=== PATIENT | female | born 1935 | race Caucasian/White ===

== ENCOUNTER 2021-11-05 23:33 | Inpatient (IN) | payer OTHER ==
[~2021-11-05] VITALS: Ht 162.6 cm; Wt 68.0 kg
[2021-11-06] MEDS ORDERED: SODIUM CHLORIDE 0.9% 1,000 ML IV ONE
[2021-11-06 07:47] LABS: HEMATOCRIT. 37.6 % (36.0-48.0); HEMOGLOBIN. 12.9 g/dL (12.0-16.0); MEAN CORPUSCULAR HEMOGLOBIN 31.9 pg (28.0-32.0); MEAN CORPUSCULAR VOLUME 93.3 fL (81.0-99.0); MEAN PLATELET VOLUME 8.7 fl (7.4-10.4); PLATELET 187 x1000/uL (130-400); RED BLOOD CELL COUNT 4.02 mill/uL (4.2-5.4); RED CELL DISTRIBUTION WIDTH 14.7 % (11.6-14.6)
[2021-11-06 07:56] LABS: CHLORIDE 106 mEq/L (98-107)
[2021-11-06 08:04] LABS: ETHANOL BLOOD < 10 mg/dL
[2021-11-06] MEDS ORDERED: ONDANSETRON HCL 4MG/2ML INJ IV PRN (08:30)
[2021-11-06] MEDS ORDERED: MAGNESIUM/ALUMINUM HYDROXIDE/SIMETHICONE 30ML UDC PO PRN (08:30)
[2021-11-06] MEDS ORDERED: ZOLPIDEM TARTRATE 5MG TABLET PO PRN (08:30)
[2021-11-06] MEDS ORDERED: NITROGLYCERIN 0.4MG TABLET SL SL PRN (08:30)
[2021-11-06] MEDS ORDERED: IPRATROPIUM/ALBUTEROL 0.5-3(2.5)MG/3ML NEB NEB PRN (08:30)
[2021-11-06] MEDS ORDERED: ACETAMINOPHEN 325MG TABLET PO PRN ×2 (08:30)
[2021-11-06] MEDS ORDERED: GUAIFENESIN 200MG/10ML SUGAR FREE UDC PO PRN (08:30)
[2021-11-06] MEDS ORDERED: DOCUSATE SODIUM 100MG CAPSULE PO PRN (08:30)
[2021-11-06] MEDS ORDERED: CLONIDINE 0.1MG TABLET PO PRN (08:30)
[2021-11-06] MEDS ORDERED: KETOROLAC 15MG/ML VIAL IV PRN (08:30)
[2021-11-06 08:52] LABS: PLATELET ESTIMATE NORMAL
[2021-11-06] MEDS ORDERED: FAMOTIDINE 20MG TABLET PO SCH (09:00)
[2021-11-06 09:13] LABS: TOTAL IRON BINDING CAPACITY 284 ug/dL (250-450)
[2021-11-06] MEDS: FAMOTIDINE 20MG TABLET PO SCH (11:47)
[2021-11-06] MEDS: ASCORBIC ACID 500 MG TABLET PO SCH ×2 (11:47→22:37)
[2021-11-06] MEDS: ENOXAPARIN 40MG/0.4ML SYR SUBCUT SCH (11:47)
[2021-11-06] MEDS: CHOLECALCIFEROL (D3) 1000 UNIT TABLET PO SCH (11:47)
[2021-11-06] MEDS: ASPIRIN 325MG EC TABLET PO SCH (11:48)
[2021-11-06] MEDS: ZINC SULFATE 220 MG ( 50 ) CAPSULE PO SCH (12:19)
[2021-11-06] MEDS ORDERED: CEFTRIAXONE 1 G PREMIX 50 ML IV SCH (17:30)
[2021-11-06] MEDS ORDERED: ALBUTEROL 6.7GM HFA INHALER ORI PRN (17:30)
[2021-11-06] MEDS ORDERED: AZITHROMYCIN 500MG/250ML 250 ML IV NR (17:41)
[2021-11-06 18:05] LABS: CREATINE KINASE 164 IU/L (26-192)
[2021-11-06 18:07] LABS: CREATINE KINASE MB FRACTION < 1.0 ng/mL (0.5-3.6)
[2021-11-07] VITALS (7 sets, daily range): BP systolic 102–140; BP diastolic 49–88
[2021-11-07] MEDS: ALBUTEROL 6.7GM HFA INHALER ORI SCH (03:00)
[2021-11-07] MEDS: CHOLECALCIFEROL (D3) 1000 UNIT TABLET PO SCH (08:15)
[2021-11-07] MEDS: ENOXAPARIN 40MG/0.4ML SYR SUBCUT SCH (08:15)
[2021-11-07] MEDS: ASPIRIN 325MG EC TABLET PO SCH (08:16)
[2021-11-07] MEDS: FAMOTIDINE 20MG TABLET PO SCH (08:16)
[2021-11-07] MEDS: ZINC SULFATE 220 MG ( 50 ) CAPSULE PO SCH (08:16)
[2021-11-07] MEDS: ASCORBIC ACID 500 MG TABLET PO SCH ×2 (08:16→20:01)
[2021-11-07 13:25] LABS: BASOPHILS % 0.7 % (0.0-2.0); EOSINOPHILS % 0.2 % (0.0-5.0); HEMATOCRIT. 42.2 % (36.0-48.0); HEMOGLOBIN. 13.8 g/dL (12.0-16.0); MEAN CORPUSCULAR HEMOGLOBIN 30.6 pg (28.0-32.0); MEAN CORPUSCULAR VOLUME 93.5 fL (81.0-99.0); MEAN PLATELET VOLUME 9.8 fl (7.4-10.4); MONOCYTES % 13.5 % (2.0-8.0); NEUTROPHILS % 39.6 % (40.0-76.0); PLATELET 196 x1000/uL (130-400); RED BLOOD CELL COUNT 4.52 mill/uL (4.2-5.4); RED CELL DISTRIBUTION WIDTH 15.2 % (11.6-14.6)
[2021-11-07 13:30] LABS: CHLORIDE 103 mEq/L (98-107)
[2021-11-07 13:50] LABS: PHOSPHORUS 3.5 mg/dL (2.5-4.9)
[2021-11-07 13:55] LABS: CREATINE KINASE MB FRACTION 1.4 ng/mL (0.5-3.6)
[2021-11-07] MEDS: CEFTRIAXONE 1,000 MG in DEXTROSE 5% WATER 50 ML IV SCH (16:19)
[2021-11-07] MEDS ORDERED: AZITHROMYCIN 500 MG in DEXT 5% WATER 250 ML IV SCH (18:00)
[2021-11-07] MEDS ORDERED: AMIO100T4 MT (21:47)
[2021-11-07] MEDS ORDERED: [UNRECOGNIZED DRUG - CODE] PO (21:47)
[2021-11-07] MEDS ORDERED: APIX2.5T MT (21:47)
[2021-11-07] MEDS ORDERED: KETO10TA2 MT (21:47)
[2021-11-07] MEDS ORDERED: ZIAC5 MT (21:47)
[2021-11-08] VITALS: BP 110/50
[2021-11-08] MEDS: ALBUTEROL 6.7GM HFA INHALER ORI SCH ×4 (03:55→20:43)
[2021-11-08 04:00] VITALS: BP 126/77
[2021-11-08 08:00] VITALS: BP 120/70
[2021-11-08] MEDS: CHOLECALCIFEROL (D3) 1000 UNIT TABLET PO SCH (09:23)
[2021-11-08] MEDS: ZINC SULFATE 220 MG ( 50 ) CAPSULE PO SCH (09:23)
[2021-11-08] MEDS: ENOXAPARIN 40MG/0.4ML SYR SUBCUT SCH (09:23)
[2021-11-08] MEDS: ASCORBIC ACID 500 MG TABLET PO SCH ×2 (09:23→20:43)
[2021-11-08] MEDS: ASPIRIN 81MG EC TABLET PO SCH (09:24)
[2021-11-08] MEDS: FAMOTIDINE 20MG TABLET PO SCH (09:24)
[2021-11-08 12:00] VITALS: BP 120/69
[2021-11-08 16:00] VITALS: BP 143/60
[2021-11-08] MEDS: CEFTRIAXONE 1,000 MG in DEXTROSE 5% WATER 50 ML IV SCH (17:24)
[2021-11-08] MEDS: AZITHROMYCIN 500 MG in DEXT 5% WATER 250 ML IV SCH (17:52)
[2021-11-08 19:10] LABS: FOLIC ACID (FOLATE) SERUM 3.6 ng/mL (>5.38)
[2021-11-08 20:00] VITALS: BP 152/58
[2021-11-09] VITALS: BP 127/75
[2021-11-09] MEDS: ALBUTEROL 6.7GM HFA INHALER ORI SCH ×4 (02:31→20:48)
[2021-11-09 04:00] VITALS: BP 116/64
[2021-11-09 08:00] VITALS: BP 116/79
[2021-11-09] MEDS: ENOXAPARIN 40MG/0.4ML SYR SUBCUT SCH (09:09)
[2021-11-09] MEDS: CHOLECALCIFEROL (D3) 1000 UNIT TABLET PO SCH (09:11)
[2021-11-09] MEDS: FAMOTIDINE 20MG TABLET PO SCH (09:11)
[2021-11-09] MEDS: ASPIRIN 81MG EC TABLET PO SCH (09:11)
[2021-11-09] MEDS: ASCORBIC ACID 500 MG TABLET PO SCH ×2 (09:11→20:48)
[2021-11-09] MEDS: ZINC SULFATE 220 MG ( 50 ) CAPSULE PO SCH (09:11)
[2021-11-09 12:00] VITALS: BP 113/62
[2021-11-09 16:00] VITALS: BP 152/62
[2021-11-09] MEDS: CEFTRIAXONE 1,000 MG in DEXTROSE 5% WATER 50 ML IV SCH (17:52)
[2021-11-09] MEDS: AZITHROMYCIN 500 MG in DEXT 5% WATER 250 ML IV SCH (17:53)
[2021-11-09 20:00] VITALS: BP 107/79
[2021-11-10] MEDS: ALBUTEROL 6.7GM HFA INHALER ORI SCH ×4 (03:17→20:11)
[2021-11-10 04:00] VITALS: BP 110/57
[2021-11-10 06:00] VITALS: BP 110/57
[2021-11-10 08:00] VITALS: BP 117/45
[2021-11-10] MEDS: ASCORBIC ACID 500 MG TABLET PO SCH ×2 (10:31→20:10)
[2021-11-10] MEDS: ENOXAPARIN 40MG/0.4ML SYR SUBCUT SCH (10:31)
[2021-11-10] MEDS: ASPIRIN 81MG EC TABLET PO SCH (10:31)
[2021-11-10] MEDS: ZINC SULFATE 220 MG ( 50 ) CAPSULE PO SCH (10:31)
[2021-11-10] MEDS: CHOLECALCIFEROL (D3) 1000 UNIT TABLET PO SCH (10:31)
[2021-11-10] MEDS: FAMOTIDINE 20MG TABLET PO SCH (10:31)
[2021-11-10 12:00] VITALS: BP 115/87
[2021-11-10 16:00] VITALS: BP 128/51
[2021-11-10] MEDS: CEFTRIAXONE 1,000 MG in DEXTROSE 5% WATER 50 ML IV SCH (16:07)
[2021-11-10] MEDS: AZITHROMYCIN 500 MG in DEXT 5% WATER 250 ML IV SCH (17:28)
[2021-11-10 20:00] VITALS: BP 106/51
[2021-11-11] VITALS: BP 103/66
[2021-11-11] MEDS: ALBUTEROL 6.7GM HFA INHALER ORI SCH ×2 (03:36→08:23)
[2021-11-11 04:00] VITALS: BP 129/85
[2021-11-11 08:00] VITALS: BP 119/72
[2021-11-11 08:13] LABS: HEPATITIS B SURFACE ANTIGEN NEGATIVE
[2021-11-11] MEDS: ZINC SULFATE 220 MG ( 50 ) CAPSULE PO SCH (08:22)
[2021-11-11] MEDS: ASCORBIC ACID 500 MG TABLET PO SCH (08:22)
[2021-11-11] MEDS: ENOXAPARIN 40MG/0.4ML SYR SUBCUT SCH (08:22)
[2021-11-11] MEDS: CHOLECALCIFEROL (D3) 1000 UNIT TABLET PO SCH (08:22)
[2021-11-11] MEDS: FAMOTIDINE 20MG TABLET PO SCH (08:22)
[2021-11-11] MEDS: ASPIRIN 81MG EC TABLET PO SCH (08:22)
[2021-11-11 11:32] VITALS: BP 120/66
[2021-11-11 12:00] VITALS: BP 124/76
== END 2021-11-11 13:40 | disposition home or self-care (01) | DRG 720 ==
LOC: ER 23:33 → 7EST 11-06 06:52 → ENRESERV 11-07 05:16
PROVIDERS: ADMIT Internal Medicine; ATTEND Internal Medicine
DX: A41.89 Other specified sepsis (principal); J96.00 Acute respiratory failure, unspecified whether with hypoxia or hypercapnia; J12.82 Pneumonia due to coronavirus disease 2019; E72.20 Disorder of urea cycle metabolism, unspecified; E44.0 Moderate protein-calorie malnutrition; I48.92 Unspecified atrial flutter; U07.1 COVID-19; G92.8 Other toxic encephalopathy; I48.0 Paroxysmal atrial fibrillation; F03.90 Unspecified dementia, unspecified severity, without behavioral disturbance, psychotic disturbance, mood disturbance, and anxiety; R00.1 Bradycardia, unspecified; R74.01 Elevation of levels of liver transaminase levels; I50.9 Heart failure, unspecified; I11.0 Hypertensive heart disease with heart failure; Z86.73 Personal history of transient ischemic attack (TIA), and cerebral infarction without residual deficits; Z68.25 Body mass index [BMI] 25.0-25.9, adult
CPT/HCPCS: 36415; 71045; 80048; 80053; 80076; 82550; 82553; 83735; 84100; 84484; 85025; 86140; 86705; 86709; 86803; 87340; 93005; 93970; 99285; C1893; J0456; J0696; J1650; J1885; J2405; J7030; J7060